=== PATIENT | female | born 1975 | race Caucasian/White ===

== ENCOUNTER 2020-06-02 10:03 | Inpatient (IN) ==
[2020-06-02] MEDS ORDERED: Aspirin 325 MG TABLET PO ONE (10:14)
[2020-06-02 10:32] LABS: Basophils # 0.1 K/mcL (0.0-0.2); Basophils % 1.1 %; Eosinophils # 0.1 K/mcL (0.0-0.6); Eosinophils % 1.1 %; Hematocrit 41.1 % (35.3-44.9); Hemoglobin 13.9 g/dL (11.5-15.4); Immature Granulocytes % 0.7 % (0-4); Lymphocytes % 26.4 %; Mean Corpuscular HGB Conc 33.8 g/dL (31.6-35.5); Mean Corpuscular Hemoglobin 29.9 pg (28.0-33.3); Mean Corpuscular Volume 88.4 fL (83.0-100.0); Mean Platelet Volume 10.1 fL (9.4-12.4); Monocytes # 0.6 K/mcL (0.0-1.3); Monocytes % 8.2 %; Neutrophils # 4.8 K/mcL (1.6-8.9); Platelet Count 330 K/mcL (140-400); Red Blood Count 4.65 M/mcL (3.82-4.97); Red Cell Distribution Width 12.7 % (11.5-14.5); Segmented Neutrophils % 62.5 %; White Blood Count 7.6 K/mcL (4.3-11.1)
[2020-06-02 10:53] LABS: BUN/Creatinine Ratio 14 (6-26); Blood Urea Nitrogen 10 mg/dL (6-20); Calcium 9.3 mg/dL (8.6-10.3); Carbon Dioxide 25 mEq/L (23-29); Chloride 106 mEq/L (98-107); Glucose 109 mg/dL (70-105); Osmolality,Calculated 288 (280-300); Potassium 3.7 mEq/L (3.5-5.1); Sodium 139 mEq/L (136-145); eGFR For African Americans > 60 (> 60); eGFR For Non-African Americans > 60 (> 60)
[2020-06-02 10:55] LABS: Troponin I < 0.03 ng/mL (< 0.04)
[2020-06-02] MEDS ORDERED: Acetaminophen 325 MG TABLET PO ONE (10:57)
[2020-06-02] MEDS ORDERED: CeFAZolin Syr 2,000MG/20 ML 2,000 MG/20 ML SYRINGE IVPB ONE (11:32)
[2020-06-02] MEDS ORDERED: DOXYCYCLINE IX ONE (12:00)
[2020-06-02] MEDS ORDERED: CATH TIP IX ONE (12:00)
[2020-06-02] MEDS ORDERED: SODIUM CHLORIDE IX ONE (12:00)
[2020-06-02] MEDS ORDERED: *HR* Propofol 200 MG/20 ML VIAL IVP ONE ×2 (13:19→15:32)
[2020-06-02] MEDS ORDERED: Dexamethasone 4 MG/ML VIAL ONE (13:20)
[2020-06-02] MEDS ORDERED: *HR* Rocuronium Bromide 50 MG/5 ML VIAL ONE (13:20)
[2020-06-02] MEDS ORDERED: Lidocaine -MPF 2% 2 ML VIAL ONE (13:20)
[2020-06-02] MEDS ORDERED: Ondansetron 4 MG/2 ML VIAL ONE (13:20)
[2020-06-02] MEDS ORDERED: *HR* Succinylcholine 200 MG/10 ML VIAL IVP ONE (13:20)
[2020-06-02] MEDS ORDERED: *HR* FentaNYL (PF) 100 MCG/2 ML VIAL ONE ×2 (13:54→14:29)
[2020-06-02] MEDS ORDERED: *HR* Midazolam HCl 2 MG/2 ML VIAL ONE (13:54)
[2020-06-02] MEDS ORDERED: Scopolamine Patch 1.5 MG PATCH.TD72 TD ONE (14:04)
[2020-06-02] MEDS ORDERED: Dexamethasone 4 MG/ML VIAL IVP ONE (14:04)
[2020-06-02] MEDS ORDERED: Nitroglycerin 0.4 MG TAB.SUBL SL PRN (14:06)
[2020-06-02] MEDS ORDERED: Naloxone 0.4 MG/ML INJ IVP PRN ×2 (14:06→18:03)
[2020-06-02] MEDS ORDERED: *HR* FentaNYL (PF) 100 MCG/2 ML VIAL IVP PRN (14:06)
[2020-06-02] MEDS ORDERED: Albuterol 2.5 MG/3 ML NEBULIZER IH PRN (14:06)
[2020-06-02] MEDS ORDERED: *HR* HYDROmorphone PF 0.5 MG/0.5 ML SYRINGE IVP PRN (14:06)
[2020-06-02] MEDS ORDERED: Ondansetron 4 MG/2 ML VIAL IVP PRN ×2 (14:06→18:03)
[2020-06-02] MEDS ORDERED: Acetaminophen IV 1,000 MG/100 ML BAG IVPB ONE (14:40)
[2020-06-02] MEDS ORDERED: *HR* HYDROMORPHONE 2 MG/ML VIAL ONE (15:36)
[2020-06-02] MEDS ORDERED: EPHEDrine 50 MG/ML VIAL ONE (15:49)
[2020-06-02] MEDS ORDERED: Sugammadex Sodium 200 MG/2 ML VIAL IV ONE (16:11)
[2020-06-02] MEDS ORDERED: 0.9 % Sodium Chloride 1,000 ML IVC SCH (18:03)
[2020-06-02] MEDS: Ketorolac 15 MG/ML VIAL IVP SCH (18:30)
[2020-06-02] MEDS: Ipratropium/Albuterol Neb 3 ML IH SCH ×2 (19:46→23:21)
[2020-06-02] MEDS: Sennosides/Docusate Sodium TABLET PO SCH (21:15)
[2020-06-02] MEDS: Famotidine 20 MG TABLET PO SCH (21:15)
[2020-06-02] MEDS: *HR* Heparin 5,000 UNIT/ML VIAL SQ SCH (21:15)
[2020-06-02] MEDS: Gabapentin 300 MG CAPSULE PO SCH (21:15)
[2020-06-02] MEDS ORDERED: 0.9 % Sodium Chloride 500 ML IVC ONE (23:58)
[2020-06-03] MEDS ORDERED: 0.9 % Sodium Chloride 500 ML IVC ONE (01:05)
[2020-06-03] MEDS: Ketorolac 15 MG/ML VIAL IVP SCH ×4 (01:11→18:30)
[2020-06-03] MEDS ORDERED: 0.9 % Sodium Chloride 1,000 ML IVC SCH (01:56)
[2020-06-03] MEDS: Ipratropium/Albuterol Neb 3 ML IH SCH ×6 (03:49→23:19)
[2020-06-03 05:08] LABS: % Iron Saturation 9 % (15-50); BUN/Creatinine Ratio 16 (6-26); Blood Urea Nitrogen 9 mg/dL (6-20); Calcium 7.4 mg/dL (8.6-10.3); Carbon Dioxide 24 mEq/L (23-29); Chloride 109 mEq/L (98-107); Glucose 139 mg/dL (70-105); Iron 24 mcg/dL (50-170); Magnesium 1.5 mg/dL (1.6-2.6); Osmolality,Calculated 287 (280-300); Sodium 138 mEq/L (136-145); Transferrin 192 mg/dL (203-362); eGFR For African Americans > 60 (> 60); eGFR For Non-African Americans > 60 (> 60)
[2020-06-03 05:10] LABS: Hematocrit 27.6 % (35.3-44.9); Mean Corpuscular HGB Conc 32.6 g/dL (31.6-35.5); Mean Corpuscular Hemoglobin 30.4 pg (28.0-33.3); Mean Corpuscular Volume 93.2 fL (83.0-100.0); Mean Platelet Volume 10.8 fL (9.4-12.4); Platelet Count 281 K/mcL (140-400); Red Blood Count 2.96 M/mcL (3.82-4.97); Red Cell Distribution Width 12.8 % (11.5-14.5)
[2020-06-03 05:16] LABS: White Blood Count 14.2 K/mcL (4.3-11.1)
[2020-06-03] MEDS: *HR* Heparin 5,000 UNIT/ML VIAL SQ SCH ×3 (06:58→20:19)
[2020-06-03] MEDS: Gabapentin 300 MG CAPSULE PO SCH ×3 (09:18→20:18)
[2020-06-03] MEDS: Famotidine 20 MG TABLET PO SCH ×2 (09:18→20:17)
[2020-06-03] MEDS: Venlafaxine XR (24 HR) 150 MG CAP.ER.24H PO SCH (09:18)
[2020-06-03] MEDS: Sennosides/Docusate Sodium TABLET PO SCH ×2 (09:18→20:17)
[2020-06-03] MEDS ORDERED: Iron Sucrose Complex 400 MG in 0.9 % Sodium Chloride 250 ML IVPB ONE (11:07)
[2020-06-03] MEDS ORDERED: Folic Acid 1 MG in 0.9 % Sodium Chloride 50 ML IVPB ONE (11:09)
[2020-06-03] MEDS ORDERED: Thiamine (B-1) 100 MG in 0.9 % Sodium Chloride 50 ML IVPB ONE (11:09)
[2020-06-03] MEDS: *HR* HYDROcodone/Acet 5/325 mg TABLET PO PRN (20:17)
[2020-06-04] MEDS: Ketorolac 15 MG/ML VIAL IVP SCH ×4 (00:33→17:25)
[2020-06-04 01:49] LABS: BUN/Creatinine Ratio 18 (6-26); Blood Urea Nitrogen 12 mg/dL (6-20); Calcium 7.8 mg/dL (8.6-10.3); Carbon Dioxide 24 mEq/L (23-29); Chloride 111 mEq/L (98-107); Glucose 125 mg/dL (70-105); Osmolality,Calculated 291 (280-300); Phosphorous 2.7 mg/dL (2.7-4.5); Potassium 3.6 mEq/L (3.5-5.1); Sodium 140 mEq/L (136-145); eGFR For African Americans > 60 (> 60); eGFR For Non-African Americans > 60 (> 60)
[2020-06-04] MEDS: Ipratropium/Albuterol Neb 3 ML IH SCH ×2 (03:29→07:29)
[2020-06-04] MEDS: *HR* Heparin 5,000 UNIT/ML VIAL SQ SCH ×3 (06:13→21:31)
[2020-06-04] MEDS: Sennosides/Docusate Sodium TABLET PO SCH ×2 (07:55→21:31)
[2020-06-04] MEDS: Gabapentin 300 MG CAPSULE PO SCH ×3 (07:55→21:31)
[2020-06-04] MEDS: Venlafaxine XR (24 HR) 150 MG CAP.ER.24H PO SCH (07:55)
[2020-06-04] MEDS: Famotidine 20 MG TABLET PO SCH ×2 (07:55→21:31)
[2020-06-04] MEDS ORDERED: Iron Sucrose Complex 400 MG in 0.9 % Sodium Chloride 250 ML IVPB ONE (11:07)
[2020-06-04] MEDS ORDERED: Potassium Phosphate 44 MEQ in 0.9 % Sodium Chloride 250 ML IVPB ONE (11:11)
[2020-06-05] MEDS: Ketorolac 15 MG/ML VIAL IVP SCH ×4 (00:09→18:15)
[2020-06-05] MEDS: *HR* Heparin 5,000 UNIT/ML VIAL SQ SCH ×3 (07:28→21:03)
[2020-06-05] MEDS: *HR* HYDROcodone/Acet 5/325 mg TABLET PO PRN (08:40)
[2020-06-05] MEDS: Sennosides/Docusate Sodium TABLET PO SCH ×2 (08:40→21:03)
[2020-06-05] MEDS: Famotidine 20 MG TABLET PO SCH ×2 (08:40→21:03)
[2020-06-05] MEDS: Gabapentin 300 MG CAPSULE PO SCH ×3 (08:40→21:04)
[2020-06-05] MEDS: Venlafaxine XR (24 HR) 150 MG CAP.ER.24H PO SCH (08:40)
[2020-06-06] MEDS: Ketorolac 15 MG/ML VIAL IVP SCH ×5 (00:29→23:25)
[2020-06-06 01:08] LABS: Hematocrit 21.6 % (35.3-44.9); Hemoglobin 6.9 g/dL (11.5-15.4); Mean Corpuscular HGB Conc 31.9 g/dL (31.6-35.5); Mean Corpuscular Hemoglobin 30.1 pg (28.0-33.3); Mean Corpuscular Volume 94.3 fL (83.0-100.0); Mean Platelet Volume 11.4 fL (9.4-12.4); Platelet Count 194 K/mcL (140-400); Red Blood Count 2.29 M/mcL (3.82-4.97); Red Cell Distribution Width 13.8 % (11.5-14.5)
[2020-06-06 01:32] LABS: BUN/Creatinine Ratio 16 (6-26); Blood Urea Nitrogen 9 mg/dL (6-20); Calcium 8.3 mg/dL (8.6-10.3); Carbon Dioxide 27 mEq/L (23-29); Chloride 109 mEq/L (98-107); Glucose 114 mg/dL (70-105); Magnesium 1.8 mg/dL (1.6-2.6); Osmolality,Calculated 292 (280-300); Potassium 4.1 mEq/L (3.5-5.1); Sodium 141 mEq/L (136-145); eGFR For African Americans > 60 (> 60); eGFR For Non-African Americans > 60 (> 60)
[2020-06-06] MEDS: *HR* Heparin 5,000 UNIT/ML VIAL SQ SCH (05:56)
[2020-06-06] MEDS: Famotidine 20 MG TABLET PO SCH ×2 (08:27→20:19)
[2020-06-06] MEDS: Venlafaxine XR (24 HR) 150 MG CAP.ER.24H PO SCH (08:27)
[2020-06-06] MEDS: Gabapentin 300 MG CAPSULE PO SCH ×3 (08:27→20:19)
[2020-06-06] MEDS: Sennosides/Docusate Sodium TABLET PO SCH ×2 (08:27→20:20)
[2020-06-06 09:03] LABS: Hematocrit 26.9 % (35.3-44.9); Hemoglobin 8.9 g/dL (11.5-15.4)
[2020-06-07 03:01] LABS: Hematocrit 27.8 % (35.3-44.9); Mean Corpuscular HGB Conc 32.4 g/dL (31.6-35.5); Mean Corpuscular Hemoglobin 30.4 pg (28.0-33.3); Mean Corpuscular Volume 93.9 fL (83.0-100.0); Mean Platelet Volume 10.2 fL (9.4-12.4); Platelet Count 280 K/mcL (140-400); Red Blood Count 2.96 M/mcL (3.82-4.97); Red Cell Distribution Width 13.6 % (11.5-14.5); White Blood Count 8.9 K/mcL (4.3-11.1)
[2020-06-07] MEDS: Ketorolac 15 MG/ML VIAL IVP SCH ×2 (06:56→11:06)
[2020-06-07] MEDS: Gabapentin 300 MG CAPSULE PO SCH ×2 (08:25→15:17)
[2020-06-07] MEDS: Venlafaxine XR (24 HR) 150 MG CAP.ER.24H PO SCH (08:25)
[2020-06-07] MEDS: Famotidine 20 MG TABLET PO SCH (08:25)
[2020-06-07] MEDS: Sennosides/Docusate Sodium TABLET PO SCH (08:25)
[2020-06-07 11:13] VITALS: BP 113/69
== END 2020-06-07 16:55 | disposition home or self-care (01) | DRG 164 ==
LOC: 2NNU 10:03 → EMEROOARM 10:03 → 2NNU 13:34
PROVIDERS: ADMIT Thoracic Surgery (Cardiothoracic Vascular Surgery); ATTEND Thoracic Surgery (Cardiothoracic Vascular Surgery)